=== PATIENT | male | born 2000 | race Native Hawaiian/Other Pacific Islander ===

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

== ENCOUNTER 2020-05-15 14:56 | Emergency (ER) | payer BC, OTHER ==
[~2020-05-15] VITALS: Ht 190.5 cm; Wt 97.1 kg
[2020-05-15 15:06] VITALS: BP 90/70; TEMP 98.9
== END 2020-05-15 16:25 | disposition home or self-care (01) ==
LOC: ED 14:56
DX: S93.692A Other sprain of left foot, initial encounter (principal); S93.492A Sprain of other ligament of left ankle, initial encounter; S30.811A Abrasion of abdominal wall, initial encounter; V86.95XA Unspecified occupant of 3- or 4- wheeled all-terrain vehicle (ATV) injured in nontraffic accident, initial encounter; Y92.89 Other specified places as the place of occurrence of the external cause
CPT/HCPCS: 96372; 99283; J1885